=== PATIENT | male | born 1995 | race Caucasian/White ===

== ENCOUNTER 2016-12-26 09:41 | Emergency (ER) | payer OTHER ==
[2016-12-26 10:03] VITALS: BP 139/86
--- NOTE | 2016-12-29 07:00 | UC ---
Throat Pain/Nasal Richard HPI - HPI Summary HPI Summary: 21 year old male presents with complains of sore throat and cough. - History of Current Complaint Chief Complaint: UCGeneralIllness Stated Complaint: ST,FATIGUE,HEADACHE Time Seen by Provider: 12/26/16 10:01 Hx Obtained From: Patient Onset/Duration: Sudden Onset Severity: Moderate Pain Intensity: 7 Pain Scale Used: 0-10 Numeric - Allergies/Home Medications Allergies/Adverse Reactions: Allergies Allergy/AdvReac Type Severity Reaction Status Date / Time No Known Allergies Allergy Verified 12/26/16 10:00 PMH/Surg Hx/FS Hx/Imm Hx Previously Healthy: Yes - Surgical History Surgical History: None - Social History Alcohol Use: Weekly Alcohol Amount: WEEKENDS Substance Use Type: None Substance Use Comment - Amount & Last Used: NOT RECENTLY Smoking Status (MU): Light Every Day Tobacco Smoker Type: Cigarettes - Immunization History Most Recent Influenza Vaccination: NO Review of Systems Constitutional: Negative Skin: Negative Eyes: Negative ENT: Sore Throat, Nasal Discharge, Sinus Congestion, Sinus Pain/Tenderness Respiratory: Cough Cardiovascular: Negative Gastrointestinal: Negative Genitourinary: Negative Motor: Negative Neurovascular: Negative Musculoskeletal: Negative Neurological: Negative Psychological: Negative All Other Systems Reviewed And Are Negative: Yes Physical Exam Triage Information Reviewed: Yes Vital Signs: Initial Vital Signs Temp 37.2 C 12/26/16 10:00 Pulse 108 12/26/16 10:00 Resp 16 12/26/16 10:00 BP 139/86 12/26/16 10:00 Pulse Ox 98 12/26/16 10:00 Vital Signs Reviewed: Yes Eye Exam: Normal ENT: Positive: Nasal congestion, Nasal drainage, Sinus tenderness Dental Exam: Normal Neck exam: Normal Neck: Positive: 1 Respiratory Exam: Normal Cardiovascular Exam: Normal Abdominal Exam: Normal Musculoskeletal Exam: Normal Neurological Exam: Normal Psychological Exam: Normal Skin Exam: Normal Throat Pain/Nasal Course/Dx - Differential Dx/Diagnosis Provider Diagnoses: pharyngitis. cough Discharge - Discharge Plan Condition: Stable Disposition: HOME Prescriptions: Amoxicillin/Clavulanate TAB* [Augmentin TAB 875*] 875 mg PO BID #14 tab LoraTADine TAB(NF) [Claritin 10 MG TAB(NF)] 10 mg PO DAILY #30 tab Magic M W2 Kan/Maal/Nyst/Lido* 5 ml SWISH SPIT QID PRN #120 ml PRN Reason: Pain Methylprednisolone [Medrol Dosepak 4 MG*] 4 mg PO .SEE SACHI INSTRUCTION #21 tab Patient Education Materials: Sinusitis (ED), Cold Symptoms (ED), Acute Cough ( ED) Referrals: No Primary Care Phys,NOPCP [Primary Care Provider] -
== END 2016-12-26 10:34 | disposition home or self-care (01) ==
LOC: UCCORT 09:41
DX: J02.9 Acute pharyngitis, unspecified (principal); R05 Cough
CPT/HCPCS: 87651; 99202; G0463